=== PATIENT | female | born 1955 | race African-American/Black ===

== ENCOUNTER 2017-10-04 10:33 | Emergency (ER) | payer MEDICAID ==
[~2017-10-04] VITALS: Ht 175.3 cm; Wt 82.0 kg
[~2017-10-04 10:33] MED LIST: TRAMADOL
[2017-10-04] MEDS ORDERED: norco (10:43)
[2017-10-04 11:40] VITALS: BP 120/67
== END 2017-10-04 12:02 | disposition home or self-care (01) ==
LOC: ER 10:52
DX: B37.3 Candidiasis of vulva and vagina (principal)
CPT/HCPCS: 99283

== ENCOUNTER 2017-10-26 15:09 | Emergency (ER) | payer MEDICAID ==
[~2017-10-26] VITALS: Ht 170.2 cm; Wt 77.0 kg
[~2017-10-26 15:09] MED LIST changes: -TRAMADOL; +norco
[2017-10-26 15:20] VITALS: BP 96/78
== END 2017-10-26 16:04 | disposition home or self-care (01) ==
LOC: ER 15:57
DX: N76.0 Acute vaginitis (principal); M19.90 Unspecified osteoarthritis, unspecified site
CPT/HCPCS: 99283

== ENCOUNTER 2018-01-19 13:22 | Emergency (ER) | payer MEDICAID ==
[~2018-01-19] VITALS: Ht 170.2 cm; Wt 69.0 kg
[2018-01-19] MEDS ORDERED: BACITRACIN ZINC OINT UDPKT TOP ONE (15:15)
[2018-01-19] MEDS ORDERED: HYDROCODONE/ACETAMINOPHEN 5/325MG TABLET PO ONE (15:15)
[2018-01-19] MEDS ORDERED: LIDOCAINE HCL 1%/EPI 1:200,000 30 ML VIAL MC ONE (15:15)
[2018-01-19 17:00] VITALS: BP 131/74
== END 2018-01-19 17:20 | disposition home or self-care (01) ==
LOC: ER 15:13
DX: L02.411 Cutaneous abscess of right axilla (principal); R03.0 Elevated blood-pressure reading, without diagnosis of hypertension
CPT/HCPCS: 76641; 81025; 99284

== ENCOUNTER 2018-11-22 08:37 | Emergency (ER) | payer MEDICAID ==
[~2018-11-22] VITALS: Ht 170.2 cm; Wt 89.7 kg
[2018-11-22 09:55] VITALS: BP 150/81
== END 2018-11-22 10:07 | disposition home or self-care (01) ==
LOC: ER 08:37
DX: J06.9 Acute upper respiratory infection, unspecified (principal); R05 Cough
CPT/HCPCS: 71045; 99283

== ENCOUNTER 2018-11-30 13:52 | Emergency (ER) | payer MEDICAID ==
[~2018-11-30] VITALS: Ht 170.2 cm; Wt 80.0 kg
[2018-11-30 14:09] VITALS: BP 177/93
== END 2018-11-30 17:12 | disposition home or self-care (01) ==
LOC: ER 13:52
DX: B34.9 Viral infection, unspecified (principal); Z98.51 Tubal ligation status
CPT/HCPCS: 71045; 99283

== ENCOUNTER 2022-12-04 14:01 | Emergency (ER) | payer MEDICAID, MEDICARE ==
[~2022-12-04] VITALS: Ht 167.6 cm; Wt 82.0 kg
[2022-12-04] MEDS ORDERED: BO1 TP (15:23)
[2022-12-04] MEDS ORDERED: NAPR-681 MT (15:23)
[2022-12-04] MEDS ORDERED: OFLO5DRO4 LEFT EAR (15:23)
[2022-12-04] MEDS ORDERED: KETOROLAC 30MG/ML VIAL IM ONE (15:30)
[2022-12-04 15:54] VITALS: BP 156/67
== END 2022-12-04 16:16 | disposition home or self-care (01) ==
LOC: ER 14:01
DX: H60.92 Unspecified otitis externa, left ear (principal); L91.8 Other hypertrophic disorders of the skin
CPT/HCPCS: 81025; 96372; 99283; J1885